=== PATIENT | male | born 1935 | race Caucasian/White ===

== ENCOUNTER 2017-08-12 08:59 | Inpatient (IN) | payer MEDICARE, OTHER ==
[~2017-08-12] VITALS: Ht 172.7 cm; Wt 110.7 kg
[2017-08-12 09:22] LABS: BASOPHILS # (AUTO) 0.3 /CMM (0.0-0.2); BASOPHILS % (AUTO) 2.7 % (0.0-2.0); EOSINOPHILS % (AUTO) 1.2 % (0.0-6.0); HEMATOCRIT 31 % (39-51); HEMOGLOBIN 10.4 g/dL (13.5-17.5); LYMPHOCYTES # (AUTO) 1.4 /CMM (0.8-4.8); LYMPHOCYTES % (AUTO) 12.5 % (20.0-44.0); MEAN CORPUSCULAR HGB CONC 33 g/dl (31.0-36.0); MEAN CORPUSCULAR VOLUME 84 fL (80-96); MONOCYTES # (AUTO) 0.7 /CMM (0.1-1.30); MONOCYTES % (AUTO) 6.4 % (2.0-12.0); NEUTROPHILS # (AUTO) 8.4 /CMM (1.8-8.9); NEUTROPHILS % (AUTO) 77.2 % (43.0-81.0); PLATELET COUNT (AUTO) 204 /CMM (150-450); RDW COEFFICIENT OF VARIATION 13.2 (11.5-15.0); RED BLOOD CELL COUNT(AUTO) 3.72 MIL/uL (4.5-6.0); WHITE BLOOD COUNT (AUTO) 10.9 K/uL (4.3-11.0)
[2017-08-12 09:32] LABS: CALCIUM, SERUM 8.6 mg/dL (8.5-10.1); CARBON DIOXIDE 20 mmol/L (21-32); CHLORIDE 107 mmol/L (98-107); CREATININE 3.7 mg/dL (0.6-1.3); GLUCOSE 177 mg/dL (74-106); POTASSIUM 4.4 mmol/L (3.5-5.1); SODIUM SERUM 139 mmol/L (136-145); UREA NITROGEN, BLOOD 61 mg/dL (7-18)
[2017-08-12 09:38] LABS: ALANINE AMINOTRANSFERASE 11 U/L (12-78); ALBUMIN 2.9 g/dL (3.4-5.0); ALKALINE PHOSPHATASE 55 U/L (46-116); ASPARTATE AMINOTRANSFERASE 11 U/L (15-37); BILIRUBIN,TOTAL 0.5 mg/dL (0.2-1.0); TOTAL PROTEIN, SERUM 7.7 g/dL (6.4-8.2)
[2017-08-12 09:53] LABS: TROPONIN I 0.158 ng/mL (0.00-0.056)
[2017-08-12 10:02] LABS: INR 0.99 (0.87-1.13)
[2017-08-12] MEDS ORDERED: METRONIDAZOLE 500MG/ NS 100ML 500 MG in PREMIX 1 EA IV SCH (10:30)
[2017-08-12] MEDS ORDERED: AZITHROMYCIN 500 MG in IV D5W 250 ML IV ONE (10:30)
[2017-08-12] MEDS ORDERED: ASPIRIN 300 MG/SUPP.RECT RC ONE (10:30)
[2017-08-12] MEDS ORDERED: CEFTRIAXONE 1GM BAG (ER ONLY) 1 GM/50 ML PIGGYBACK IV ONE (10:30)
[2017-08-12 10:46] LABS: CREATINE KINASE MB 0.9 ng/mL (0-3.6)
[2017-08-12] MEDS ORDERED: CEFTRIAXONE 1GM BAG (ER ONLY) 50 ML IV ONE (10:47)
[2017-08-12] MEDS ORDERED: ASPIRIN 325 MG TABLET ONE (10:48)
[2017-08-12] MEDS ORDERED: ASPIRIN 325 MG TABLET PO ONE (11:00)
[2017-08-12] MEDS ORDERED: HYDR-3026 PO (11:46)
[2017-08-12] MEDS ORDERED: ZOLP10TA6 PO (11:46)
[2017-08-12] MEDS ORDERED: SIMV20TA6 PO (11:46)
[2017-08-12] MEDS ORDERED: ISOS60TA4 PO (11:46)
[2017-08-12] MEDS ORDERED: POLY15DR57 EACHEYE (11:46)
[2017-08-12] MEDS ORDERED: SOLI10TA2 PO (11:46)
[2017-08-12] MEDS ORDERED: LINA5TAB PO (11:46)
[2017-08-12] MEDS ORDERED: ESOM40CA PO (11:46)
[2017-08-12] MEDS ORDERED: GABA-532 PO (11:46)
[2017-08-12] MEDS ORDERED: CLOP75TA15 PO (11:46)
[2017-08-12] MEDS ORDERED: AMLO5TAB7 PO (11:46)
[2017-08-12] MEDS ORDERED: HYDR-4076 PO (11:46)
[2017-08-12] MEDS ORDERED: VITA1CAP PO (11:46)
[2017-08-12] MEDS ORDERED: FERR325T23 PO (11:46)
[2017-08-12] MEDS ORDERED: CETI-102 PO (11:46)
[2017-08-12] MEDS ORDERED: OMEG-167 PO (11:46)
[2017-08-12] MEDS ORDERED: TAMS0.4C34 PO (11:46)
[2017-08-12] MEDS ORDERED: DICL100G16 TP (11:46)
[2017-08-12] MEDS ORDERED: NALO25TA PO (11:46)
[2017-08-12] MEDS ORDERED: DULA0.75 SQ (11:46)
[2017-08-12] MEDS ORDERED: FURO40TA5 PO (11:46)
[2017-08-12] MEDS ORDERED: METO50TA16 PO (11:46)
[2017-08-12] MEDS ORDERED: METRONIDAZOLE 500MG/ NS 100ML 100 ML IV ONE (11:48)
[2017-08-12] MEDS ORDERED: CILO50TA PO (11:51)
[2017-08-12] MEDS ORDERED: KETO15CR2 TP (11:53)
[2017-08-12 12:00] VITALS: BP 121/65
[2017-08-12] MEDS ORDERED: ONDANSETRON HCL/PF 4 MG/2 ML VIAL IVP PRN (12:00)
[2017-08-12] MEDS ORDERED: MAG HYDROX/AL HYDROX/SIMETH 30 ML UDC PO PRN (12:00)
[2017-08-12] MEDS ORDERED: DEXTROSE 50%-WATER 50 ML DISP.SYRIN IV PRN (12:00)
[2017-08-12] MEDS ORDERED: MAGNESIUM HYDROXIDE 30 ML UDC PO PRN (12:00)
[2017-08-12] MEDS: BLOOD SUGAR DIAGNOSTIC 1 EACH STRIP IN SCH ×4 (13:00→22:25)
[2017-08-12] MEDS: INSULIN REGULAR, HUMAN 100 UNIT/ML 3 ML VIAL SQ PRN ×3 (13:30→22:26)
[2017-08-12] MEDS: IV NS 0.9% 1,000 ML IV PRN (13:36)
[2017-08-12] MEDS: IPRATROPIUM NEB FS 0.5 MG/2.5 ML AMPUL.NEB NEB SCH ×2 (15:55→19:57)
[2017-08-12] MEDS: ALBUTEROL FS 2.5 MG/3 ML VIAL.NEB NEB SCH ×2 (15:55→19:57)
[2017-08-12 16:35] VITALS: BP 138/61
[2017-08-12 20:00] VITALS: BP 129/69
[2017-08-12 22:55] LABS: APPEARANCE,URINE CLEAR (CLEAR); BILIRUBIN,URINE NEGATIVE (NEGATIVE); BLOOD, URINE TRACE-INTA Ery/uL (NEGATIVE); COLOR,URINE YELLOW (YELLOW); KETONES,URINE NEGATIVE (NEGATIVE); LEUKOCYTE ESTERASE ,URINE NEGATIVE (NEGATIVE); NITRITE, URINE NEGATIVE (NEGATIVE); PH,URINE 5.5 (5.0-8.0); PROTEIN,URINE 2+ mg/dl (NEGATIVE); UGLUCOSE NEGATIVE (NEGATIVE); UROBILINOGEN,URINE 0.2 EU/dL (0.2)
[2017-08-12 23:16] LABS: BACTERIA,URINE Few /HPF (None Seen); SQUAMOUS EPITHELIAL CELL,UR Few /HPF (None Seen); WBC,URINE 0-2 /HPF (0-3)
[2017-08-13] VITALS (7 sets, daily range): BP systolic 112–144; BP diastolic 62–77
[2017-08-13] MEDS: ZOLPIDEM TARTRATE 5 MG TABLET PO PRN ×2 (00:30→23:09)
[2017-08-13] MEDS: ALBUTEROL FS 2.5 MG/3 ML VIAL.NEB NEB SCH ×4 (01:30→20:15)
[2017-08-13] MEDS: BLOOD SUGAR DIAGNOSTIC 1 EACH STRIP IN SCH ×6 (01:45→21:02)
[2017-08-13 06:49] LABS: BASOPHILS % (AUTO) 0.3 % (0.0-2.0); EOSINOPHILS % (AUTO) 2.6 % (0.0-6.0); HEMATOCRIT 30 % (39-51); HEMOGLOBIN 9.8 g/dL (13.5-17.5); LYMPHOCYTES # (AUTO) 1.5 /CMM (0.8-4.8); LYMPHOCYTES % (AUTO) 17.6 % (20.0-44.0); MEAN CORPUSCULAR HGB CONC 33 g/dl (31.0-36.0); MEAN CORPUSCULAR VOLUME 85 fL (80-96); MONOCYTES # (AUTO) 0.6 /CMM (0.1-1.30); MONOCYTES % (AUTO) 6.6 % (2.0-12.0); NEUTROPHILS # (AUTO) 6.3 /CMM (1.8-8.9); NEUTROPHILS % (AUTO) 72.9 % (43.0-81.0); PLATELET COUNT (AUTO) 192 /CMM (150-450); RDW COEFFICIENT OF VARIATION 13.9 (11.5-15.0); WHITE BLOOD COUNT (AUTO) 8.7 K/uL (4.3-11.0)
[2017-08-13 07:19] LABS: CHOLESTEROL 125 mg/dL (<200); HDL CHOLESTEROL 30 mg/dL (40-60); LDL 82 mg/dL (0-99); TRIGLYCERIDES 90 mg/dL (30-150)
[2017-08-13] MEDS: IV NS 0.9% 1,000 ML IV PRN (07:35)
[2017-08-13 07:40] LABS: CALCIUM, SERUM 8.2 mg/dL (8.5-10.1); CARBON DIOXIDE 18 mmol/L (21-32); CHLORIDE 108 mmol/L (98-107); GLUCOSE 117 mg/dL (74-106); MAGNESIUM 1.6 mg/dL (1.8-2.4); PHOSPHORUS 3.7 mg/dL (2.5-4.9); POTASSIUM 4.2 mmol/L (3.5-5.1); SODIUM SERUM 140 mmol/L (136-145); UREA NITROGEN, BLOOD 51 mg/dL (7-18)
[2017-08-13] MEDS ORDERED: Medication Not On Formulary EA (Naloxegol Oxalate (Movantik) 25 MG) PO PRN (08:30)
[2017-08-13] MEDS: IPRATROPIUM NEB FS 0.5 MG/2.5 ML AMPUL.NEB NEB SCH ×4 (08:38→20:15)
[2017-08-13] MEDS ORDERED: Medication Not On Formulary EA (Omega-3 Fatty Acids/Fish Oil (Fish Oil 1,000 Mg Softgel) PO SCH (09:00)
[2017-08-13] MEDS: LINAGLIPTIN 5 MG TABLET PO SCH (09:13)
[2017-08-13] MEDS: CLOPIDOGREL BISULFATE 75 MG TABLET PO SCH (09:13)
[2017-08-13] MEDS: hydrALAZINE HCL 25 MG TABLET PO SCH ×2 (09:14→16:48)
[2017-08-13] MEDS: VITAMIN B COMP W-C 1 TAB TABLET PO SCH (09:14)
[2017-08-13] MEDS: TAMSULOSIN 0.4 MG CAP.SR.24H PO SCH (09:14)
[2017-08-13] MEDS: FUROSEMIDE 40 MG TABLET PO SCH (09:15)
[2017-08-13] MEDS: AMLODIPINE BESYLATE 5 MG TABLET PO SCH (09:16)
[2017-08-13] MEDS: cetrizine 10 MG TABLET PO SCH (09:16)
[2017-08-13] MEDS: PANTOPRAZOLE 40 MG TABLET.DR PO SCH (09:17)
[2017-08-13] MEDS: INSULIN REGULAR, HUMAN 100 UNIT/ML 3 ML VIAL SQ PRN ×4 (09:31→21:08)
[2017-08-13] MEDS: AZITHROMYCIN 500 MG in IV D5W 250 ML IV SCH (10:35)
[2017-08-13] MEDS: ACETAMINOPHEN 325 MG TABLET PO PRN (10:47)
[2017-08-13] MEDS: CEFTRIAXONE 1 G in IV D5W 50 ML IV SCH (11:49)
[2017-08-13] MEDS: POLYVINYL ALCOHOL 15 ML BOTTLE EACHEYE SCH ×3 (11:49→16:43)
[2017-08-13] MEDS ORDERED: BARIUM SULFATE 148 GM SUSP.RECON PO ONE (14:18)
[2017-08-13] MEDS ORDERED: BARIUM SULFATE 240 ML ORAL.SUSP PO ONE (14:18)
[2017-08-13] MEDS ORDERED: Magnesium 1GM/D5W 100ML PREMIX PIGGYBACK IV ONE (14:30)
[2017-08-13] MEDS: Magnesium 1GM/D5W 100ML PREMIX 100 ML IV SCH ×2 (15:16→16:41)
[2017-08-13] MEDS: Z GUARD REMEDY 2 OZ OINT TP PRN (15:16)
[2017-08-13 15:48] LABS: APPEARANCE,URINE SL CLOUDY (CLEAR); BILIRUBIN,URINE NEGATIVE (NEGATIVE); BLOOD, URINE TRACE-INTA Ery/uL (NEGATIVE); COLOR,URINE YELLOW (YELLOW); KETONES,URINE NEGATIVE (NEGATIVE); LEUKOCYTE ESTERASE ,URINE NEGATIVE (NEGATIVE); NITRITE, URINE NEGATIVE (NEGATIVE); PH,URINE 5.5 (5.0-8.0); PROTEIN,URINE 2+ mg/dl (NEGATIVE); UGLUCOSE NEGATIVE (NEGATIVE); UROBILINOGEN,URINE 0.2 EU/dL (0.2)
[2017-08-13 15:56] LABS: URINE TOTAL PROTEIN 113.4 mg/dL (0-11.9)
[2017-08-13 17:24] LABS: BACTERIA,URINE Rare /HPF (None Seen); SQUAMOUS EPITHELIAL CELL,UR Rare /HPF (None Seen)
[2017-08-13 17:28] LABS: EOSINOPHIL,URINE None Seen
[2017-08-13] MEDS: hydrOXYzine PAMOATE 25 MG CAPSULE PO SCH (17:31)
[2017-08-13] MEDS: SIMVASTATIN 20 MG TABLET PO SCH (17:31)
[2017-08-13] MEDS: GABAPENTIN 100 MG CAPSULE PO SCH (17:32)
[2017-08-13] MEDS: CILOSTAZOL 100 MG TABLET PO SCH (17:32)
[2017-08-13] MEDS: METOPROLOL TARTRATE 50 MG TABLET PO SCH (17:33)
[2017-08-13] MEDS ORDERED: CILOSTAZOL 50 MG TABLET PO SCH (18:00)
[2017-08-13] MEDS ORDERED: ZOLPIDEM TARTRATE 10 MG TABLET PO SCH (22:00)
[2017-08-14] MEDS: BLOOD SUGAR DIAGNOSTIC 1 EACH STRIP IN SCH ×6 (00:43→21:07)
[2017-08-14] MEDS: INSULIN REGULAR, HUMAN 100 UNIT/ML 3 ML VIAL SQ PRN ×4 (00:47→21:11)
[2017-08-14] MEDS: Z GUARD REMEDY 2 OZ OINT TP PRN (00:49)
[2017-08-14] MEDS: ALBUTEROL FS 2.5 MG/3 ML VIAL.NEB NEB SCH ×5 (01:20→19:58)
[2017-08-14] MEDS: ACETAMINOPHEN 325 MG TABLET PO PRN (04:24)
[2017-08-14 06:38] LABS: ALANINE AMINOTRANSFERASE 13 U/L (12-78); ALBUMIN 2.3 g/dL (3.4-5.0); ALKALINE PHOSPHATASE 54 U/L (46-116); ASPARTATE AMINOTRANSFERASE 9 U/L (15-37); BILIRUBIN,TOTAL 0.3 mg/dL (0.2-1.0); CALCIUM, SERUM 8.3 mg/dL (8.5-10.1); CARBON DIOXIDE 20 mmol/L (21-32); CHLORIDE 108 mmol/L (98-107); CREATININE 3.1 mg/dL (0.6-1.3); GLUCOSE 135 mg/dL (74-106); MAGNESIUM 2.2 mg/dL (1.8-2.4); POTASSIUM 4.4 mmol/L (3.5-5.1); SODIUM SERUM 140 mmol/L (136-145); TOTAL PROTEIN, SERUM 6.5 g/dL (6.4-8.2); UREA NITROGEN, BLOOD 52 mg/dL (7-18)
[2017-08-14 06:41] LABS: BASOPHILS % (AUTO) 0.5 % (0.0-2.0); EOSINOPHILS % (AUTO) 4.4 % (0.0-6.0); HEMATOCRIT 28 % (39-51); HEMOGLOBIN 9.4 g/dL (13.5-17.5); LYMPHOCYTES # (AUTO) 1.7 /CMM (0.8-4.8); LYMPHOCYTES % (AUTO) 21.2 % (20.0-44.0); MEAN CORPUSCULAR HGB CONC 33 g/dl (31.0-36.0); MEAN CORPUSCULAR VOLUME 84 fL (80-96); MONOCYTES # (AUTO) 0.7 /CMM (0.1-1.30); MONOCYTES % (AUTO) 8.6 % (2.0-12.0); NEUTROPHILS # (AUTO) 5.2 /CMM (1.8-8.9); NEUTROPHILS % (AUTO) 65.3 % (43.0-81.0); PLATELET COUNT (AUTO) 178 /CMM (150-450); RDW COEFFICIENT OF VARIATION 13.8 (11.5-15.0); RED BLOOD CELL COUNT(AUTO) 3.35 MIL/uL (4.5-6.0); WHITE BLOOD COUNT (AUTO) 7.9 K/uL (4.3-11.0)
[2017-08-14 06:55] LABS: TROPONIN I 0.039 ng/mL (0.00-0.056)
[2017-08-14 07:06] LABS: CREATINE KINASE, TOTAL 58 U/L (39-308); FERRITIN 363 ng/mL (8-388)
[2017-08-14 07:30] LABS: IRON, SERUM 19 ug/dl (50-175); TOTAL IRON BINDING CAPACITY 111 ug/dl (250-450)
[2017-08-14] MEDS: IPRATROPIUM NEB FS 0.5 MG/2.5 ML AMPUL.NEB NEB SCH ×4 (07:49→19:58)
[2017-08-14 08:00] VITALS: BP 111/66
[2017-08-14] MEDS: TAMSULOSIN 0.4 MG CAP.SR.24H PO SCH (08:34)
[2017-08-14] MEDS: cetrizine 10 MG TABLET PO SCH (08:34)
[2017-08-14] MEDS: VITAMIN B COMP W-C 1 TAB TABLET PO SCH (08:34)
[2017-08-14] MEDS: PANTOPRAZOLE 40 MG TABLET.DR PO SCH (08:37)
[2017-08-14] MEDS: LINAGLIPTIN 5 MG TABLET PO SCH (08:38)
[2017-08-14] MEDS: ISOSORBIDE MONONITRATE (30MG) 30 MG TAB.SR.24H PO SCH (08:38)
[2017-08-14] MEDS: POLYVINYL ALCOHOL 15 ML BOTTLE EACHEYE SCH ×3 (08:39→16:51)
[2017-08-14] MEDS: CLOPIDOGREL BISULFATE 75 MG TABLET PO SCH (08:39)
[2017-08-14] MEDS: hydrALAZINE HCL 25 MG TABLET PO SCH ×2 (08:40→16:57)
[2017-08-14] MEDS: CEFTRIAXONE 1 G in IV D5W 50 ML IV SCH (11:00)
[2017-08-14] MEDS: AZITHROMYCIN 500 MG in IV D5W 250 ML IV SCH (11:07)
[2017-08-14 16:00] VITALS: BP 108/48
[2017-08-14] MEDS: LACTOBACILLUS RHAMNOSUS GG 1 EACH CAP.SPRINK PO SCH (16:57)
[2017-08-14] MEDS: HYDROCODONE/APAP 5/325MG 1 EACH TABLET PO PRN (17:55)
[2017-08-14] MEDS: METOPROLOL TARTRATE 50 MG TABLET PO SCH (18:00)
[2017-08-14] MEDS: SIMVASTATIN 20 MG TABLET PO SCH (18:03)
[2017-08-14] MEDS: GABAPENTIN 100 MG CAPSULE PO SCH (18:03)
[2017-08-14] MEDS: hydrOXYzine PAMOATE 25 MG CAPSULE PO SCH (18:05)
[2017-08-14] MEDS: CILOSTAZOL 100 MG TABLET PO SCH (18:05)
[2017-08-14 20:00] VITALS: BP 116/70
[2017-08-14 21:00] VITALS: BP 110/55
[2017-08-14] MEDS: ZOLPIDEM TARTRATE 5 MG TABLET PO PRN (21:11)
[2017-08-14] MEDS ORDERED: IV NS 0.9% 1,000 ML IV PRN (21:30)
[2017-08-14 22:33] VITALS: BP 119/64
[2017-08-14 22:57] LABS: CALCIUM, SERUM 7.6 mg/dL (8.5-10.1); CARBON DIOXIDE 20 mmol/L (21-32); CHLORIDE 106 mmol/L (98-107); CREATININE 3.1 mg/dL (0.6-1.3); GLUCOSE 154 mg/dL (74-106); POTASSIUM 4.9 mmol/L (3.5-5.1); SODIUM SERUM 136 mmol/L (136-145); UREA NITROGEN, BLOOD 50 mg/dL (7-18)
[2017-08-14 23:05] LABS: TROPONIN I 0.024 ng/mL (0.00-0.056)
[2017-08-14 23:48] VITALS: BP 100/64
[2017-08-15 00:07] VITALS: BP 100/64
[2017-08-15] MEDS: BLOOD SUGAR DIAGNOSTIC 1 EACH STRIP IN SCH ×6 (00:39→22:32)
[2017-08-15] MEDS: INSULIN REGULAR, HUMAN 100 UNIT/ML 3 ML VIAL SQ PRN ×4 (00:40→17:11)
[2017-08-15] MEDS: ALBUTEROL FS 2.5 MG/3 ML VIAL.NEB NEB SCH ×4 (01:30→19:57)
[2017-08-15 04:00] VITALS: BP 105/67
[2017-08-15 04:36] VITALS: BP 105/67
[2017-08-15 05:00] VITALS: BP 104/55
[2017-08-15 06:37] LABS: CALCIUM, SERUM 8.3 mg/dL (8.5-10.1); CARBON DIOXIDE 19 mmol/L (21-32); CHLORIDE 107 mmol/L (98-107); CREATININE 3.1 mg/dL (0.6-1.3); GLUCOSE 125 mg/dL (74-106); MAGNESIUM 2.2 mg/dL (1.8-2.4); PHOSPHORUS 4.2 mg/dL (2.5-4.9); POTASSIUM 4.5 mmol/L (3.5-5.1); SODIUM SERUM 138 mmol/L (136-145); UREA NITROGEN, BLOOD 50 mg/dL (7-18)
[2017-08-15 06:45] LABS: BASOPHILS % (AUTO) 0.4 % (0.0-2.0); EOSINOPHILS % (AUTO) 5.2 % (0.0-6.0); HEMATOCRIT 27 % (39-51); HEMOGLOBIN 8.7 g/dL (13.5-17.5); LYMPHOCYTES # (AUTO) 1.8 /CMM (0.8-4.8); LYMPHOCYTES % (AUTO) 26.5 % (20.0-44.0); MEAN CORPUSCULAR HGB CONC 33 g/dl (31.0-36.0); MEAN CORPUSCULAR VOLUME 85 fL (80-96); MONOCYTES # (AUTO) 0.7 /CMM (0.1-1.30); MONOCYTES % (AUTO) 9.4 % (2.0-12.0); NEUTROPHILS # (AUTO) 4.1 /CMM (1.8-8.9); NEUTROPHILS % (AUTO) 58.5 % (43.0-81.0); PLATELET COUNT (AUTO) 171 /CMM (150-450); RDW COEFFICIENT OF VARIATION 14.1 (11.5-15.0); RED BLOOD CELL COUNT(AUTO) 3.12 MIL/uL (4.5-6.0); WHITE BLOOD COUNT (AUTO) 6.9 K/uL (4.3-11.0)
[2017-08-15] MEDS: IPRATROPIUM NEB FS 0.5 MG/2.5 ML AMPUL.NEB NEB SCH ×4 (08:02→19:56)
[2017-08-15] MEDS: FUROSEMIDE 40 MG TABLET PO SCH (08:33)
[2017-08-15] MEDS: VITAMIN B COMP W-C 1 TAB TABLET PO SCH (08:33)
[2017-08-15] MEDS: LACTOBACILLUS RHAMNOSUS GG 1 EACH CAP.SPRINK PO SCH ×2 (08:33→17:01)
[2017-08-15] MEDS: TAMSULOSIN 0.4 MG CAP.SR.24H PO SCH (08:33)
[2017-08-15] MEDS: CLOPIDOGREL BISULFATE 75 MG TABLET PO SCH (08:34)
[2017-08-15] MEDS: LINAGLIPTIN 5 MG TABLET PO SCH (08:34)
[2017-08-15] MEDS: PANTOPRAZOLE 40 MG TABLET.DR PO SCH (08:34)
[2017-08-15] MEDS: hydrALAZINE HCL 25 MG TABLET PO SCH ×2 (08:35→17:00)
[2017-08-15] MEDS: ISOSORBIDE MONONITRATE (30MG) 30 MG TAB.SR.24H PO SCH (08:36)
[2017-08-15] MEDS: AMLODIPINE BESYLATE 5 MG TABLET PO SCH (08:36)
[2017-08-15] MEDS: VESICARE 10 MG PO SCH (08:39)
[2017-08-15] MEDS: cetrizine 10 MG TABLET PO SCH (08:39)
[2017-08-15] MEDS: POLYVINYL ALCOHOL 15 ML BOTTLE EACHEYE SCH ×3 (08:40→17:03)
[2017-08-15] MEDS: CEFTRIAXONE 1 G in IV D5W 50 ML IV SCH (09:00)
[2017-08-15] MEDS: AZITHROMYCIN 500 MG in IV D5W 250 ML IV SCH (11:08)
[2017-08-15 12:14] LABS: PTH, INTACT 53 pg/mL (15-65)
[2017-08-15 16:00] VITALS: BP 131/61
[2017-08-15] MEDS: hydrOXYzine PAMOATE 25 MG CAPSULE PO SCH (17:01)
[2017-08-15] MEDS: GABAPENTIN 100 MG CAPSULE PO SCH (17:01)
[2017-08-15] MEDS: METOPROLOL TARTRATE 50 MG TABLET PO SCH (17:02)
[2017-08-15] MEDS: ACETAMINOPHEN 325 MG TABLET PO PRN (17:02)
[2017-08-15] MEDS: SIMVASTATIN 20 MG TABLET PO SCH (17:02)
[2017-08-15] MEDS: CILOSTAZOL 100 MG TABLET PO SCH (17:02)
[2017-08-15 18:23] LABS: OCCULT BLOOD STOOL POSITIVE (NEGATIVE)
[2017-08-15 20:00] VITALS: BP 101/61
[2017-08-16] MEDS: BLOOD SUGAR DIAGNOSTIC 1 EACH STRIP IN SCH ×5 (00:42→21:50)
[2017-08-16] MEDS: ALBUTEROL FS 2.5 MG/3 ML VIAL.NEB NEB SCH ×4 (01:21→21:10)
[2017-08-16] MEDS: ZOLPIDEM TARTRATE 5 MG TABLET PO PRN ×2 (02:09→21:57)
[2017-08-16] MEDS: INSULIN REGULAR, HUMAN 100 UNIT/ML 3 ML VIAL SQ PRN ×3 (05:48→17:51)
[2017-08-16] MEDS: IPRATROPIUM NEB FS 0.5 MG/2.5 ML AMPUL.NEB NEB SCH ×5 (07:54→21:10)
[2017-08-16 08:13] VITALS: BP 116/64
[2017-08-16] MEDS: ISOSORBIDE MONONITRATE (30MG) 30 MG TAB.SR.24H PO SCH (09:00)
[2017-08-16] MEDS: hydrALAZINE HCL 25 MG TABLET PO SCH (09:00)
[2017-08-16] MEDS: PANTOPRAZOLE 40 MG TABLET.DR PO SCH (09:42)
[2017-08-16] MEDS: POLYVINYL ALCOHOL 15 ML BOTTLE EACHEYE SCH ×3 (09:42→16:50)
[2017-08-16] MEDS: LINAGLIPTIN 5 MG TABLET PO SCH (09:42)
[2017-08-16] MEDS: VITAMIN B COMP W-C 1 TAB TABLET PO SCH (09:43)
[2017-08-16] MEDS: TAMSULOSIN 0.4 MG CAP.SR.24H PO SCH (09:43)
[2017-08-16] MEDS: VESICARE 10 MG PO SCH (09:43)
[2017-08-16] MEDS: LACTOBACILLUS RHAMNOSUS GG 1 EACH CAP.SPRINK PO SCH ×2 (09:43→16:51)
[2017-08-16] MEDS: cetrizine 10 MG TABLET PO SCH (09:43)
[2017-08-16] MEDS: CEFTRIAXONE 1 G in IV D5W 50 ML IV SCH (10:41)
[2017-08-16] MEDS: CLOPIDOGREL BISULFATE 75 MG TABLET PO SCH (10:42)
[2017-08-16] MEDS ORDERED: TRULICITY SQ SCH (11:00)
[2017-08-16] MEDS: METOPROLOL SUCCINATE 50 MG TAB.SR.24H PO SCH (13:06)
[2017-08-16 16:13] VITALS: BP 106/57
[2017-08-16] MEDS: AZITHROMYCIN 250 MG TABLET PO SCH (16:50)
[2017-08-16] MEDS: FERROUS SULFATE (325 MG) 325 MG/TAB TABLET PO SCH (16:51)
[2017-08-16] MEDS ORDERED: BLOOD SUGAR DIAGNOSTIC 1 EACH STRIP VI SCH (17:30)
[2017-08-16] MEDS ORDERED: *INSULIN REGULAR(HUMULIN R)HUM 100 UNIT/ML VIAL SQ PRN (17:30)
[2017-08-16] MEDS ORDERED: DEXTROSE 50%-WATER 50 ML DISP.SYRIN IV PRN (17:30)
[2017-08-16] MEDS: CILOSTAZOL 100 MG TABLET PO SCH (17:33)
[2017-08-16] MEDS: GABAPENTIN 100 MG CAPSULE PO SCH (17:33)
[2017-08-16] MEDS: hydrOXYzine PAMOATE 25 MG CAPSULE PO SCH (17:34)
[2017-08-16] MEDS: SIMVASTATIN 20 MG TABLET PO SCH (17:34)
[2017-08-16 20:00] VITALS: BP 145/68
[2017-08-16] MEDS: HYDROCODONE/APAP 5/325MG 1 EACH TABLET PO PRN (21:57)
[2017-08-17] MEDS: ALBUTEROL FS 2.5 MG/3 ML VIAL.NEB NEB SCH ×4 (01:27→19:48)
[2017-08-17] MEDS: HYDROCODONE/APAP 5/325MG 1 EACH TABLET PO PRN (06:27)
[2017-08-17] MEDS: BLOOD SUGAR DIAGNOSTIC 1 EACH STRIP IN SCH ×4 (06:28→22:03)
[2017-08-17 06:31] LABS: BASOPHILS % (AUTO) 0.3 % (0.0-2.0); EOSINOPHILS % (AUTO) 5.5 % (0.0-6.0); HEMATOCRIT 28 % (39-51); HEMOGLOBIN 9.4 g/dL (13.5-17.5); LYMPHOCYTES # (AUTO) 1.7 /CMM (0.8-4.8); LYMPHOCYTES % (AUTO) 21.9 % (20.0-44.0); MEAN CORPUSCULAR HGB CONC 33 g/dl (31.0-36.0); MEAN CORPUSCULAR VOLUME 84 fL (80-96); MONOCYTES # (AUTO) 0.7 /CMM (0.1-1.30); MONOCYTES % (AUTO) 9.8 % (2.0-12.0); NEUTROPHILS # (AUTO) 4.7 /CMM (1.8-8.9); NEUTROPHILS % (AUTO) 62.5 % (43.0-81.0); PLATELET COUNT (AUTO) 221 /CMM (150-450); RDW COEFFICIENT OF VARIATION 13.9 (11.5-15.0); RED BLOOD CELL COUNT(AUTO) 3.32 MIL/uL (4.5-6.0); WHITE BLOOD COUNT (AUTO) 7.6 K/uL (4.3-11.0)
[2017-08-17 06:42] LABS: CALCIUM, SERUM 8.1 mg/dL (8.5-10.1); CARBON DIOXIDE 22 mmol/L (21-32); CHLORIDE 106 mmol/L (98-107); GLUCOSE 125 mg/dL (74-106); MAGNESIUM 2.1 mg/dL (1.8-2.4); PHOSPHORUS 3.8 mg/dL (2.5-4.9); POTASSIUM 5.2 mmol/L (3.5-5.1); SODIUM SERUM 138 mmol/L (136-145); UREA NITROGEN, BLOOD 45 mg/dL (7-18)
[2017-08-17] MEDS: IPRATROPIUM NEB FS 0.5 MG/2.5 ML AMPUL.NEB NEB SCH ×4 (07:36→19:48)
[2017-08-17 08:00] VITALS: BP 125/70
[2017-08-17] MEDS: TAMSULOSIN 0.4 MG CAP.SR.24H PO SCH (09:45)
[2017-08-17] MEDS: FERROUS SULFATE (325 MG) 325 MG/TAB TABLET PO SCH ×2 (09:45→17:34)
[2017-08-17] MEDS: CLOPIDOGREL BISULFATE 75 MG TABLET PO SCH (09:46)
[2017-08-17] MEDS: VITAMIN B COMP W-C 1 TAB TABLET PO SCH (09:46)
[2017-08-17] MEDS: PANTOPRAZOLE 40 MG TABLET.DR PO SCH (09:46)
[2017-08-17] MEDS: cetrizine 10 MG TABLET PO SCH (09:46)
[2017-08-17] MEDS: LINAGLIPTIN 5 MG TABLET PO SCH (09:46)
[2017-08-17] MEDS: FUROSEMIDE 40 MG TABLET PO SCH (09:46)
[2017-08-17] MEDS: predniSONE 20 MG TABLET PO SCH (09:46)
[2017-08-17] MEDS: LACTOBACILLUS RHAMNOSUS GG 1 EACH CAP.SPRINK PO SCH ×2 (09:46→17:33)
[2017-08-17] MEDS: VESICARE 10 MG PO SCH (10:09)
[2017-08-17] MEDS: KETOCONAZOLE 2% CREAM 15 GM TUBE TP SCH (12:22)
[2017-08-17] MEDS: POLYVINYL ALCOHOL 15 ML BOTTLE EACHEYE SCH ×3 (12:22→17:48)
[2017-08-17] MEDS: METOPROLOL SUCCINATE 50 MG TAB.SR.24H PO SCH (12:36)
[2017-08-17] MEDS ORDERED: DOCUSATE SODIUM 100 MG CAPSULE PO PRN (13:00)
[2017-08-17 16:00] VITALS: BP 131/66
[2017-08-17] MEDS: AZITHROMYCIN 250 MG TABLET PO SCH (16:00)
[2017-08-17] MEDS: SIMVASTATIN 20 MG TABLET PO SCH (17:34)
[2017-08-17] MEDS: CILOSTAZOL 100 MG TABLET PO SCH (17:34)
[2017-08-17] MEDS: hydrOXYzine PAMOATE 25 MG CAPSULE PO SCH (17:34)
[2017-08-17] MEDS: GABAPENTIN 100 MG CAPSULE PO SCH (17:36)
[2017-08-17] MEDS: INSULIN REGULAR, HUMAN 100 UNIT/ML 3 ML VIAL SQ PRN (18:02)
[2017-08-17 20:00] VITALS: BP_SYST 130; BP_SYST 134; BP_DIAS 70
[2017-08-17] MEDS: ZOLPIDEM TARTRATE 5 MG TABLET PO PRN (22:13)
[2017-08-18] MEDS: ALBUTEROL FS 2.5 MG/3 ML VIAL.NEB NEB SCH ×3 (01:00→12:47)
[2017-08-18] MEDS: INSULIN REGULAR, HUMAN 100 UNIT/ML 3 ML VIAL SQ PRN ×2 (06:52→11:59)
[2017-08-18] MEDS: BLOOD SUGAR DIAGNOSTIC 1 EACH STRIP IN SCH ×2 (06:55→11:45)
[2017-08-18 07:07] LABS: *SPE A/G RATIO 0.8 (0.7-1.7); *SPE ALBUMIN 2.7 g/dL (2.9-4.4); *SPE ALPHA-1-GLOBULIN 0.3 g/dL (0.0-0.4); *SPE ALPHA-2-GLOBULIN 0.9 g/dL (0.4-1.0); *SPE BETA GLOBULIN 0.9 g/dL (0.7-1.3); *SPE GLOBULIN, TOTAL 3.4 g/dL (2.2-3.9); *SPE M-SPIKE Not Observed g/dL (Not Observed); *SPEGAMMA GLOBULIN 1.3 g/dL (0.4-1.8)
[2017-08-18 07:27] LABS: BASOPHILS # (AUTO) 0.1 /CMM (0.0-0.2); BASOPHILS % (AUTO) 1.5 % (0.0-2.0); EOSINOPHILS % (AUTO) 0.1 % (0.0-6.0); HEMATOCRIT 28 % (39-51); HEMOGLOBIN 9.1 g/dL (13.5-17.5); LYMPHOCYTES # (AUTO) 1.7 /CMM (0.8-4.8); LYMPHOCYTES % (AUTO) 17.1 % (20.0-44.0); MEAN CORPUSCULAR HGB CONC 32 g/dl (31.0-36.0); MEAN CORPUSCULAR VOLUME 85 fL (80-96); MONOCYTES # (AUTO) 0.6 /CMM (0.1-1.30); NEUTROPHILS # (AUTO) 7.4 /CMM (1.8-8.9); NEUTROPHILS % (AUTO) 75.3 % (43.0-81.0); PLATELET COUNT (AUTO) 194 /CMM (150-450); WHITE BLOOD COUNT (AUTO) 9.9 K/uL (4.3-11.0)
[2017-08-18] MEDS ORDERED: ERGOCALCIFEROL (VITAMIN D 2) 50,000 UNIT CAPSULE PO SCH (07:30)
[2017-08-18 07:41] LABS: CALCIUM, SERUM 8.8 mg/dL (8.5-10.1); CARBON DIOXIDE 22 mmol/L (21-32); CHLORIDE 105 mmol/L (98-107); GLUCOSE 186 mg/dL (74-106); MAGNESIUM 2.5 mg/dL (1.8-2.4); PHOSPHORUS 4.3 mg/dL (2.5-4.9); POTASSIUM 4.9 mmol/L (3.5-5.1); SODIUM SERUM 137 mmol/L (136-145); UREA NITROGEN, BLOOD 50 mg/dL (7-18)
[2017-08-18 08:00] VITALS: BP 122/65
[2017-08-18] MEDS: IPRATROPIUM NEB FS 0.5 MG/2.5 ML AMPUL.NEB NEB SCH ×2 (08:20→12:48)
[2017-08-18] MEDS: PANTOPRAZOLE 40 MG TABLET.DR PO SCH (08:48)
[2017-08-18] MEDS: LINAGLIPTIN 5 MG TABLET PO SCH (08:48)
[2017-08-18] MEDS: cetrizine 10 MG TABLET PO SCH (08:48)
[2017-08-18] MEDS: predniSONE 20 MG TABLET PO SCH (08:48)
[2017-08-18] MEDS: POLYVINYL ALCOHOL 15 ML BOTTLE EACHEYE SCH ×2 (08:48→12:31)
[2017-08-18] MEDS: VESICARE 10 MG PO SCH (08:48)
[2017-08-18] MEDS: FERROUS SULFATE (325 MG) 325 MG/TAB TABLET PO SCH (08:48)
[2017-08-18] MEDS: LACTOBACILLUS RHAMNOSUS GG 1 EACH CAP.SPRINK PO SCH (08:48)
[2017-08-18] MEDS: TAMSULOSIN 0.4 MG CAP.SR.24H PO SCH (08:48)
[2017-08-18] MEDS: CLOPIDOGREL BISULFATE 75 MG TABLET PO SCH (08:48)
[2017-08-18] MEDS: VITAMIN B COMP W-C 1 TAB TABLET PO SCH (08:49)
[2017-08-18] MEDS: KETOCONAZOLE 2% CREAM 15 GM TUBE TP SCH (08:50)
[2017-08-18] MEDS ORDERED: Ergocalciferol (Vitamin D 2) PO (10:28)
[2017-08-18] MEDS ORDERED: ALBUT2 INH (10:28)
[2017-08-18] MEDS ORDERED: METO50TA7 PO (10:28)
[2017-08-18] MEDS ORDERED: FERR325T28 PO (10:28)
[2017-08-18] MEDS ORDERED: PRED20TA PO (10:28)
[2017-08-18] MEDS ORDERED: AZIT250T PO (10:28)
[2017-08-18 11:45] VITALS: BP 122/65
[2017-08-18] MEDS: METOPROLOL SUCCINATE 50 MG TAB.SR.24H PO SCH (11:45)
[2017-08-18 13:12] LABS: CALCITRIOL VIT D,1, 25 DIHYDRO 27.9 pg/mL (19.9-79.3)
[2017-08-18] MEDS: AZITHROMYCIN 250 MG TABLET PO SCH (13:18)
== END 2017-08-18 13:20 | DRG 177 ==
LOC: ER 09:01 → TELE 11:29 → MED 08-13 09:01 → TELE 08-14 22:09 → MED 08-15 08:02
PROVIDERS: ADMIT Internal Medicine; ATTEND Internal Medicine
DX: J69.0 Pneumonitis due to inhalation of food and vomit (principal); N17.0 Acute kidney failure with tubular necrosis; I21.A1 Myocardial infarction type 2; G93.41 Metabolic encephalopathy; I50.33 Acute on chronic diastolic (congestive) heart failure; E44.0 Moderate protein-calorie malnutrition; K92.2 Gastrointestinal hemorrhage, unspecified; I13.0 Hypertensive heart and chronic kidney disease with heart failure and stage 1 through stage 4 chronic kidney disease, or unspecified chronic kidney disease; I69.354 Hemiplegia and hemiparesis following cerebral infarction affecting left non-dominant side; N18.4 Chronic kidney disease, stage 4 (severe); E88.09 Other disorders of plasma-protein metabolism, not elsewhere classified; E11.21 Type 2 diabetes mellitus with diabetic nephropathy; R13.10 Dysphagia, unspecified; E11.9 Type 2 diabetes mellitus without complications; D50.9 Iron deficiency anemia, unspecified; E11.22 Type 2 diabetes mellitus with diabetic chronic kidney disease; I25.10 Atherosclerotic heart disease of native coronary artery without angina pectoris; D63.8 Anemia in other chronic diseases classified elsewhere; E78.5 Hyperlipidemia, unspecified; E83.42 Hypomagnesemia; Z87.891 Personal history of nicotine dependence; Z98.61 Coronary angioplasty status; R59.0 Localized enlarged lymph nodes; L98.8 Other specified disorders of the skin and subcutaneous tissue; K21.9 Gastro-esophageal reflux disease without esophagitis; N28.1 Cyst of kidney, acquired; Z68.37 Body mass index [BMI] 37.0-37.9, adult; E83.9 Disorder of mineral metabolism, unspecified; K57.30 Diverticulosis of large intestine without perforation or abscess without bleeding
CPT/HCPCS: 36415; 70450-TC; 71045-TC; 71250-TC; 73560-TC; 74018; 74230-TC; 76770-TC; 80048-TC; 80053-TC; 80061-TC; 81000-TC; 82272-TC; 82306; 82550-TC; 82553-TC; 82570-TC; 82652; 82728-TC; 82746; 82962-TC; 83540-TC; 83605-TC; 83615-TC; 83735-TC; 83880; 83970; 84100-TC; 84155; 84155-TC; 84165; 84300-TC; 84443-TC; 84484-TC; 85025-TC; 85730-TC; 87040-TC; 87081-TC; 92526; 93307-TC; 94760-TC; 94762-TC; 94799-TC; 97116-TC; 97530-TC; A4216; A4606; J0456; J0696; J1815; J3475; J3490; J7030; J7040; J7060; Q0177; Z7610